=== PATIENT | male | born 1970 | race American Indian/Alaskan Native ===

== ENCOUNTER 2021-06-04 21:43 | Emergency (ER) | payer SELFPAY ==
[2021-06-04 23:22] VITALS: BP 151/122
--- NOTE | 2021-06-04 23:44 | Event Note ---
ED Screening Note Date of service: 06/04/21 Time: 23:40 ED Screening Note: 51 y/o male pt w/ hx of CHF, DM, HTN presents to ED w/ complaints of chest pain, SOB, abdominal swelling, and weight gain for the last four days. Pt states he is out of his CHF medications. Dyspnea is worse on exertion. General: Awake, appropriately interactive, no acute distress. Neck: Supple. Full range of motion intact. Cardiovascular: Regular rate and rhythm. Normal peripheral perfusion. Pulmonary: No respiratory distress. Diminished breath sounds along both lung bases. Patient is speaking normally without use of accessory muscles. Skin: No apparent rashes or lesions. Neurological: No facial asymmetry. Speech is clear. Follows commands. Patient is alert and oriented. Musculoskeletal: Moves all four extremities spontaneously with normal range of motion. Psych: Cooperative. Appropriate mood and affect. Ordered labs, EKG, chest x-ray. Requested cardiac cath technologist, continuous SpO2, peripheral IV access. Nursing staff aware. I have greeted and performed a focused rapid initial assessment of this patient. A comprehensive ED assessment and evaluation of the patient, analysis of all test results, and completion of the medical decision-making process will be conducted by additional ED providers. This initial assessment/diagnostic orders/clinical plan/treatment(s) is/are subject to change based on patients health status, clinical progression and re-assessment. Further treatment and workup at subsequent clinical provider's discretion. Patient/guardian urged not to elope from the ED as their condition may be serious if not clinically assessed and managed.
[2021-06-05 00:34] LABS: Basophils % (Auto) 0.5 % (0.0-1.8); Eosinophils # (Auto) 0.1 K/mm3 (0.0-0.4); Eosinophils % (Auto) 1.1 % (0.0-4.3); Hematocrit 46.6 % (35.5-45.6); Hemoglobin 15.1 gm/dl (11.8-15.2); Mean Corpuscular HGB Conc 32 % (32-34); Mean Corpuscular Volume 92 fl (84-94); Monocytes # (Auto) 0.8 K/mm3 (0.0-0.8); Monocytes % (Auto) 7.6 % (0.0-7.3); Platelet Count 220 K/mm3 (140-440); Red Blood Count 5.07 M/mm3 (3.65-5.03)
--- NOTE | 2021-06-05 00:45 | XRay Report ---
CHEST PA AND LATERAL VIEWS INDICATION: chest pain. COMPARISON: None. FINDINGS: Support devices: None. Heart: There is cardiomegaly with pulmonary venous hypertension. Lungs/Pleura: Mild interstitial opacities are noted. No consolidation or effusion. IMPRESSION: 1. Cardiomegaly with pulmonary venous hypertension. There may be mild interstitial pulmonary edema. Signer Name: Sushil Ayala MD Signed: 06/05/2021 12:40 AM Workstation Name: [id number]
[2021-06-05 00:53] LABS: Alanine Aminotransferase 182 units/L (7-56); Albumin 3.6 g/dL (3.9-5); BUN/Creatinine Ratio 18; Blood Urea Nitrogen 21 mg/dL (9-20); Calcium 8.7 mg/dL (8.4-10.2); Hemolysis Index 4
--- NOTE | 2021-06-05 04:28 | Emergency Department Report ---
ED Shortness of Breath HPI - General Chief Complaint: Dyspnea/Respdistress Stated Complaint: HEART PT/ABDOMINAL SWELLING/DIFFICULTY BREATHING Time Seen by Provider: 06/05/21 04:12 Source: patient Mode of arrival: Ambulatory Limitations: No Limitations - History of Present Illness Initial Comments: 51-year-old male, history of hypertension, CHF, presents to ED with dyspnea on exertion x1 week. He also reports orthopnea and abdominal swelling. Patient denies any chest pain or extremity swelling. Patient states he has been out of his all of his medications for several months. States he bought a diuretic [id number] but it is not helping. Patient denies any fever, cough, loss of smell or taste. Patient denies any tobacco, alcohol, or drug use. Patient seen and evaluated in acute waiting room area as there are no available rooms in the ED due to COVID-19 pandemic. MD Complaint: shortness of breath -: week(s) (1) Severity: mild Consistency: intermittent Improves With: rest Worsens With: exertion Known History Of: congestive heart failure Treatments Prior to Arrival: none - Related Data Previous Rx's Medication Instructions Recorded Last Taken Type Furosemide [Lasix TAB] 20 mg PO QDAY #30 tablet 06/05/21 Unknown Rx lisinopriL [Lisinopril] 20 mg PO QDAY #30 tablet 06/05/21 Unknown Rx Allergies Allergy/AdvReac Type Severity Reaction Status Date / Time No Known Allergies Allergy Verified 06/04/21 23:25 ED Review of Systems ROS: Stated complaint: HEART PT/ABDOMINAL SWELLING/DIFFICULTY BREATHING Other details as noted in HPI Comment: All other systems reviewed and negative Constitutional: denies: fever Respiratory: orthopnea, SOB with exertion. denies: cough Cardiovascular: denies: chest pain Gastrointestinal: denies: nausea, vomiting Musculoskeletal: other (Denies lower extremity swelling) ED Past Medical Hx - Past Medical History Previous Medical History?: Yes Hx Hypertension: Yes Hx Congestive Heart Failure: Yes Hx Diabetes: Yes - Medications Home Medications: Home Medications Medication Instructions Recorded Confirmed Last Taken Type Furosemide [Lasix TAB] 20 mg PO QDAY #30 tablet 06/05/21 Unknown Rx lisinopriL [Lisinopril] 20 mg PO QDAY #30 tablet 06/05/21 Unknown Rx ED Physical Exam - General Limitations: No Limitations General appearance: alert, in no apparent distress - Head Head exam: Present: atraumatic, normocephalic - Eye Eye exam: Present: normal appearance, EOMI - ENT ENT exam: Present: mucous membranes moist - Neck Neck exam: Present: normal inspection - Respiratory Respiratory exam: Present: rales (Faint rales in bilateral lung bases). Absent: respiratory distress - Cardiovascular Cardiovascular Exam: Present: regular rate, normal rhythm - GI/Abdominal GI/Abdominal exam: Present: soft. Absent: distended, tenderness - Extremities Exam Extremities exam: Present: normal inspection. Absent: pedal edema, calf tenderness - Neurological Exam Neurological exam: Present: alert, oriented X3 - Psychiatric Psychiatric exam: Present: normal affect, normal mood - Skin Skin exam: Present: warm, dry, intact, normal color ED Course Vital Signs 06/04/21 06/04/21 23:18 23:21 Temperature 98.1 F Pulse Rate 98 H Blood Pressure 151/122 O2 Sat by Pulse 98 Oximetry ED Medical Decision Making - Lab Data Result diagrams: 06/05/21 00:11 06/05/21 00:11 - EKG Data -: EKG Interpreted by [facility] EKG shows normal: sinus rhythm, axis, intervals, QRS complexes, ST-T waves Rate: normal - EKG Data Interpretation: LVH, other (PVCs present) - Radiology Data Radiology results: report reviewed, image reviewed - Medical Decision Making History of CHF. States he has been out of his medication for several months. Patient reports some dyspnea on exertion and orthopnea. Patient ambulates without difficulty. Patient is in no respiratory distress. O2 sats are normal. BNP is elevated and chest x-ray shows some possible mild pulmonary edema. Patient also has some mild elevation in his AST and ALT.total bili is normal. He denies any alcohol use. Patient has no tenderness on abdominal exam. Patient will be discharged with prescriptions for lisinopril and Lasix. He has been informed of his liver enzyme elevation and need to follow-up with GI, and also need to follow-up with cardiology. Patient will be discharged at this time. Return precautions given. - Differential Diagnosis CHF, pneumonia, ACS Critical care attestation.: If time is entered above; I have spent that time in minutes in the direct care of this critically ill patient, excluding procedure time. ED Disposition Clinical Impression: Uncontrolled hypertension, CHF (congestive heart failure), Elevated liver e nzymes Disposition: HOME / SELF CARE / HOMELESS Is pt being admited?: No Condition: Stable Instructions: Living With Heart Failure, Managing Your Hypertension, Hypertension (ED) Prescriptions: Furosemide [Lasix TAB] 20 mg PO QDAY #30 tablet lisinopriL [Lisinopril] 20 mg PO QDAY #30 tablet Referrals: [facility] [Provider Group] - 3-5 Days [facility] [Outside] - 3-5 Days JOSE TROY MD [Staff Physician] - 3-5 Days PRIMARY MD ROHITH [Primary Care Provider] - 3-5 Days DORCAS GARCIA MD [Staff Physician] - 3-5 Days [facility] [Provider Group] - 3-5 Days Time of Disposition: 04:36
[2021-06-05] MEDS ORDERED: FUROSEMIDE 20 MG TAB PO ONE (04:36)
--- NOTE | 2021-06-06 10:56 | Electrocardiograph Report ---
[facility] Test Date: 2021-06-04 Test Time: 23:45:13 Pat Name: GLORY PATEL Department: Room: Gender: M Inventory Specialist: LARISSA : 1970 Requested By: IDALIA VILLALOBOS Order Number: [id number] Reading MD: Anil Montague Measurements Intervals [place] Rate: 98 P: 81 [place]: 177 QRS: 51 QRSD: 110 T: 109 QT: 364 QTc: 465 Interpretive Statements Sinus rhythm Multiple ventricular premature complexes Biatrial enlargement Left ventricular hypertrophy Abnormal T, consider ischemia, lateral leads No previous ECG available for comparison Electronically Signed On 06-06-2021 10:55:31 EDT by Anil Montague
--- NOTE | 2021-06-06 10:57 | Electrocardiograph Report ---
[facility] Test Date: 2021-06-04 Test Time: 23:52:47 Pat Name: GLORY PATEL Department: Room: Gender: M Commercial Fisher: LARISSA : 1970 Requested By: MALLORY MANCILLA Order Number: [id number] Reading MD: Anil Montague Measurements Intervals [place] Rate: 97 P: 70 TN: 160 QRS: 14 QRSD: 103 T: 122 QT: 383 QTc: 482 Interpretive Statements Sinus rhythm Paired ventricular premature complexes Left atrial enlargement LVH with secondary repolarization abnormality Compared to ECG 06/04/2021 23:45:13 Early repolarization now present T-wave abnormality no longer present Possible ischemia no longer present Electronically Signed On 06-06-2021 10:56:56 EDT by Anil Montague
== END 2021-06-05 04:56 | disposition home or self-care (01) ==
LOC: ED 21:43
DX: I11.0 Hypertensive heart disease with heart failure (principal); I50.9 Heart failure, unspecified; R74.8 Abnormal levels of other serum enzymes; E11.9 Type 2 diabetes mellitus without complications; Z79.899 Other long term (current) drug therapy
CPT/HCPCS: 36415; 71046; 80053; 83735; 83880; 84484; 85025; 93005